=== PATIENT | female | born 1955 | race Caucasian/White ===

== ENCOUNTER 2020-01-25 20:25 | Inpatient (IN) ==
[2020-01-25] MEDS ORDERED: ZOFRAN IV ONE (21:17)
[2020-01-25] MEDS ORDERED: NS 1,000 ML IV ONE (21:17)
[2020-01-25] MEDS ORDERED: MORPHINE IV ONE (21:17)
[2020-01-25] MEDS ORDERED: BENTYL IM ONE (21:17)
--- NOTE | 2020-01-25 21:20 | PROVIDER DOCUMENTATION ---
HPI-Abdominal Pain/GI Problem - General Chief Complaint: Flank Pain Stated Complaint: FLANK PAIN/VOMITING Time Seen by Provider: 01/25/20 20:50 Source: patient Allergies/Adverse Reactions: Patient Allergies Allergy/AdvReac Type Severity Reaction Status Date / Time Sulfa (Sulfonamide Allergy Mild RASH Verified 01/25/20 21:11 Antibiotics) [Sulfa(Sulfonamide Antibiotics)] clarithromycin [From Biaxin] Allergy Unknown Verified 01/25/20 21:11 Home Medications: Home Medication List Medication Instructions Recorded Confirmed Last Taken Type Estradiol 1 mg PO DAILY 05/04/16 01/25/20 05/03/16 History Meloxicam [Mobic] 15 mg PO DAILY 05/04/16 01/25/20 05/03/16 History Metformin E.r. [Glucophage Xr] 2,000 mg PO DAILY 05/04/16 01/25/20 05/03/16 History Oxybutynin [Ditropan] 5 mg PO DAILY 05/04/16 01/25/20 05/03/16 History Losartan Potassium 25 mg PO DAILY 01/25/20 01/25/20 Unknown History Pantoprazole [Protonix] 40 mg PO DAILY 01/25/20 01/25/20 Unknown History - History of Present Illness-ABD Nature of Presenting Problems: Patient is a 64 yof who c/o diffuse abdominal pain described as "cramping" associated with n/v/d and lower back pain that began today. Also c/o urinary urgency and frequency for a few days. + chills. Denies any other complaints. Review of Systems - Adult - REVIEW OF SYSTEMS - ADULT Constitutional: reports: see HPI, chills Eyes: reports: no symptoms reported Ears, Nose, Mouth & Throat: reports: no symptoms reported Cardiovascular: reports: no symptoms reported Respiratory: reports: no symptoms reported Gastrointestinal: reports: see HPI Genitourinary: reports: see HPI Musculoskeletal: reports: no symptoms reported Integumentary: reports: no symptoms reported Neurological: reports: no symptoms reported Psychiatric: reports: no symptoms reported Endocrine: reports: no symptoms reported Hematologic/Lymphatic: reports: no symptoms reported Allergic/Immunologic: reports: no symptoms reported All Other Systems: Reviewed and Negative Past History - Adult - PAST MEDICAL HISTORY-ADULT Review of Records: reports: Nursing Assessment Review, Medications Reviewed, Social history reviewed & non-contributory. Major Childhood Illnesses: reports: denies history Cardiovascular: reports: HTN Respiratory: reports: denies history Gastrointestinal: reports: denies history Genitourinary: reports: denies history Musculoskeletal: reports: denies history Neurological: reports: denies history Psychiatric: reports: denies history Endocrine/Immune: reports: Diabetes Diabetes Type: Type 2 Diabetes controlled by:: PO Meds Other Conditions: reports: denies history - PRIOR SURGERIES/PROCEDURES Surgical/Procedure History: reports: reviewed, not pertinent - FAMILY HISTORY Family History: reviewed, not pertinent - SOCIAL HISTORY Smoking: non-smoker Physical Exam-General - PHYSICAL EXAM-ADULT Initial Vital Signs Reviewed: Yes - CONSTITUTIONAL General Appearance: alert, no apparent distress. negative: lethargic, slow to respond - EYES Eyes: PERRL/EOMI, pink conjunctivae - HEAD, EARS, NOSE, MOUTH & THROAT HENMT: normocephalic/atraumatic, moist mucous membranes - NECK Neck: full range of motion, supple, normal inspection - RESPIRATORY Respiratory: chest non-tender, lungs clear, normal breath sounds, no pleuratic chest pain, no respiratory distress, no accessory muscle use - CARDIOVASCULAR Cardiovascular: normal peripheral pulses, regular rate, rhythm, no gallop, no murmur - GASTROINTESTINAL (ABDOMEN) Abdominal Exam: normal bowel sounds, soft, tenderness (diffuse- moderate). negative: distended, guarding, rigid, rebound - MUSCULOSKELETAL Back Exam: normal inspection, no CVA tenderness Extremity: normal range of motion, non-tender, normal inspection - SKIN Integumentary: normal color, warm/dry. negative: cyanosis, diaphoresis, jaundice, mottled, pallor - NEUROLOGIC Neurologic: grossly normal, no motor/sensory deficits - PSYCHIATRIC Psych/Mental Status: normal mood/affect, normal thought content, normal thought process, oriented x 3 Progress - PLAN OF CARE/RESULTS Progress/Plan/Lab Results: Vital Signs - 8 hr 01/25/20 20:44 Temperature 97.9 F Pulse Rate 113 H Respiratory Rate 22 Blood Pressure 115/70 O2 Sat by Pulse Oximetry 96 Orders Category Date Time Status NEWS Score 2-4:Order NEWS Lactate Series NOW Care 01/25/20 20:48 Active Nursing- Obtain EKG ONCE Care 01/25/20 21:[address] ABD/PELVIS W/IV CONT ONLY [CT] Stat Exams 01/25/20 21:18 Ordered CBC WITH DIFF [HEME] Stat Lab 01/25/20 21:17 Ordered COMPREHENSIVE METABOLIC PANEL [CHEM] Stat Lab 01/25/20 21:17 Uncollected LACTATE, PLASMA [CHEM] Lab 01/25/20 21:00 Uncollected LACTATE, PLASMA [CHEM] Lab 01/26/20 00:00 Uncollected LACTATE, PLASMA [CHEM] Lab 01/26/20 03:00 Uncollected LIPASE [CHEM] Stat Lab 01/25/20 21:17 Uncollected UA NIMS W/REFLEX CULT [URINALYSIS] Stat Lab 01/25/20 21:17 Uncollected Dicyclomine [Bentyl] Med 01/25/20 21:17 Once 20 mg IM NOW ONE Morphine Med 01/25/20 21:17 Once 4 mg IV NOW ONE Ns 1000 ml IV Bolus X1 Med 01/25/20 21:17 Ordered 0.9% Sodium Chloride Inj [Ns] 1,000 ml IV 999 mls/hr Ondansetron [Zofran] Med 01/25/20 21:17 Once 4 mg IV NOW ONE EKG [EKG] Stat Ther 01/25/20 21:17 Stop Req EKG [EKG] Stat Ther 01/25/20 21:19 Ordered Result Diagrams: 01/25/20 21:26 01/25/20 21:26 - REASSESSMENT Reassessment #1 Time Reassessed: 23:21 Status: other (RN states core temp is 103. Tylenol ordered. On-call urologist Dr. Lulu bryant. Pt in agreement with plan to admit. Pain/nausea controlled at this time.) - EKG 1 Time of EKG reading by physician:: 22:15 EKG Read and Signed by:: Ramiro Dykes EKG Interpretation (*Must complete 3 of following elements*): Abnormal Rate: 141 Rhythm: sinus tachycardia QRS: normal ST Wave: normal - CT/MRI 1 CT Study: Abdomen, Pelvis (Impression: 1. Right UVJ 3mm calculus causes moderate right hydronephrosis and hydroureter 2. Subpleural left lower lobe pulmonary nodule measuring up to 2.6 cm. Additionally there are multiple small 2-3 mm nodules of the right lung base. Recommend correlation with prior imaging given history of lung cancer. Per [facility].) - CONSULTS/PCP/HOSPITALIST Notification #1 *Consult/PCP/Hospitalist*: Dr. Lawson Time Discussed: 23:25 Reason/Comments: kidney stone, sepsis Consult Disposition: other (No recommendations, states HPS can consult him in the morning.) #2 Consult: Dr. Jeffrey, admitting HPS at Time Discussed: 23:32 Reason/Comments: admission- septic shock, kidney stone Consult Disposition: Admit (Dr. Jeffrey accepted admit at [facility], states to admit to [facility] Departure - Departure Date of Disposition Decision: 01/25/20 Time of Disposition Decision: 23:31 DIAGNOSIS: Kidney stone on right side, Pulmonary nodule, Hiatal hernia, Liver cyst, Severe sepsis Disposition: ADMITTED INPATIENT 09 Certified Medical Emergency: Emergent Condition: Serious - Critical Care Note This patient required my direct & personal management of CC.: No Attestation - Physician/ TRAVON Attestation Patient care was provided by Advanced Practice Provider:: Yes Advanced Practice Provider:: Deanna Rueda Advanced Practice Provider documentation review:: The Mid-level provider documentation, treatment plan and medical decision making was reviewed by the physician who agrees with all treatment and medical decision making by the MLP. The physician spent face to face time with patient:: No Advanced Practice Provider documentation review:: Supervising physician onsite and consulted in the evaluation and care of this patient. The physician did not have a face to face encounter with the patient. Sepsis: Tissue Perfusion Assmt - Physical Exam Assessment Date: 01/25/20 Time Assessment Initialized: 23:35 Vital Signs: Last Vital Signs Temp 103 F H 01/25/20 23:23 Pulse 113 H 01/25/20 20:44 Resp 22 01/25/20 20:44 BP 115/70 01/25/20 20:44 Pulse Ox 96 01/25/20 20:44 Height 5 ft 3 in Weight 215 lb Lung Sounds: lungs clear Heart Sounds: Regular Capillary Refill Time: Less Than 2 Seconds Peripheral Pulse Evaluation: radial (R): 3+, radial (L): 3+ Skin Exam: pink, turgor good - Alternative Fluid Bolus Bolus Option: Alternative Fluid Resuscitation Bolus for morbidly obese patients with a BMI >30, Refer to [facility] [place] Body Weight Chart for Reference. Is patient's BMI >30?: Yes Patient's BMI: 38.1 Fluid Bolus dosed using the [employer] [place] Body Weight Chart: Yes Patient's [place] Body Weight: 52 (kg) - Impression Impression: Tissue Perfusion Adequate - Plan Plan: See Orders
[2020-01-25 21:39] LABS: EOS# 0.01 X1000 (0.0-0.7); EOS% 0.7 % (0.0-10.0); HEMATOCRIT 43.2 % (37.0-47.0); HEMOGLOBIN 13.8 g/dL (12.0-16.0); IMM GRAN# 0.02 X1000 (0.0-0.04); IMM GRAN% 1.4 % (0.0-0.5); LYMPH# 0.35 X1000 (1.2-3.4); LYMPH% 24.8 % (20.5-51.1); MCH 28.7 PG (27-31); MCHC 31.9 g/dL (33-37); MCV 89.8 FL (81-99); MONO# 0.01 X1000 (0.11-0.59); MONO% 0.7 % (1.7-9.3); MPV 9.7 FL (7.4-10.4); NEUT# 1.02 X1000 (1.4-6.5); NEUT% 72.4 % (42.2-75.2); PLT 350 X1000 (130-400); RBC 4.81 XMIL (4.2-5.4); RDW 13.7 % (11.5-14.5); WBC 1.41 X1000 (4.8-10.8)
[2020-01-25 21:55] LABS: AGAP 19; ALBUMIN 4.5 g/dL (3.5-5.0); ALKALINE PHOSPHATASE 86 U/L (32-104); BUN 18 mg/dL (8-22); CHLORIDE 100 mmol/L (98-107); COSMO 288; CREATININE 0.9 mg/dL (0.5-0.9); ESTIMATED GFR > 60; GLUCOSE 182 mg/dL (70-104); GOT 23 U/L (10-30); GPT 23 U/L (10-36); LIPASE 24 U/L (13-60); POTASSIUM 3.9 mmol/L (3.5-5.1); SODIUM 141 mmol/L (136-145); TCO2 22 mmol/L (25-35); TOTAL PROTEIN 8.6 g/dL (6.3-8.3)
[2020-01-25 22:10] LABS: LYMPHS 55 % (21-51); SEGS 45 % (42-75)
[2020-01-25 23:01] LABS: INR 0.85
[2020-01-25 23:02] LABS: PTT 21.8 Seconds (22.3-41.8)
[2020-01-25] MEDS ORDERED: NS 3,000 ML IV ONE (23:12)
[2020-01-25] MEDS: ZOSYN 3.375 GM in NS 50 ML IV SCH (23:15)
[2020-01-25] MEDS ORDERED: PITRESSIN 40 UNIT in NS 100 ML IV SCH (23:15)
[2020-01-25] MEDS ORDERED: LEVOPHED 8 MG in D5 1/2 NS 250 ML IV SCH (23:15)
[2020-01-25] MEDS ORDERED: EPINEPHRINE 4 MG in NS 250 ML IV SCH (23:15)
[2020-01-25] MEDS ORDERED: TYLENOL PO ONE (23:19)
[2020-01-25] MEDS ORDERED: ROCEPHIN 1 GM in NS 50 ML IV ONE (23:24)
[2020-01-25 23:35] LABS: URINE SOURCE CATH
[2020-01-25] MEDS ORDERED: NS 2,000 ML IV ONE (23:37)
[2020-01-25 23:38] LABS: BILIRUBIN URINE NEGATIVE (NEGATIVE); BLOOD URINE MODERATE (NEGATIVE); COLOR YELLOW; GLUCOSE URINE NEGATIVE (NEGATIVE); KETONE URINE NEGATIVE (NEGATIVE); LEUKOCYTES URINE LARGE (NEGATIVE); NITRITE URINE POSITIVE (NEGATIVE); PH URINE 5.5; PROTEIN URINE TRACE mg/dL (NEGATIVE); SP GRAVITY URINE 1.037; TURBIDITY URINE HAZY (CLEAR); UROBILINOGEN URINE NORMAL (NORMAL)
[2020-01-25 23:41] LABS: UR EPITHELIAL CELLS <10 /HPF (<10); URINE BACTERIA 4+ /HPF; URINE WBC TNTC /HPF (<10)
[2020-01-25] MEDS ORDERED: VANCOMYCIN IV PER PHARMACY MISC SCH (23:45)
[2020-01-25 23:54] LABS: URINE CASTS NONE SEEN; URINE CRYSTALS NONE SEEN; URINE SMALL ROUND CELLS NONE SEEN; URINE YEAST NONE SEEN
[2020-01-26] MEDS ORDERED: NS 1,000 ML IV SCH (02:30)
[2020-01-26] MEDS ORDERED: VANCOMYCIN 2,000 MG in NS 500 ML IV ONE (02:30)
[2020-01-26] MEDS ORDERED: NORCO-5 PO PRN (02:46)
--- NOTE | 2020-01-26 03:30 | HISTORY AND PHYSICAL ---
PRIMARY CARE PHYSICIAN: Dr. Serna. CHIEF COMPLAINT: Right flank pain x1 week. HISTORY OF PRESENTING ILLNESS: A 64-year-old female with a previous history of lung cancer status post radiation treatment, diabetes mellitus type 2, hyperlipidemia, who had presented to emergency department with 1-week history of having right flank pain. The patient states that she was not feeling well and the pain was worsening and subsequently she had come to the emergency department. She was evaluated initially at [facility] where she was found to have a right UVJ 3 mm stone with hydronephrosis. She was also found to have a UTI. She had an elevated lactate level and it was suspected possibly she was septic and due to these findings she was transferred to [facility] for further evaluation and management. At the time of my examination, patient denied any headache, chest pain, shortness of breath, hemoptysis or any weight changes, but complained of right flank pain, low-grade temperature, nausea and not feeling well. PAST MEDICAL HISTORY: Includes lung cancer, diabetes mellitus type 2, hyperlipidemia. PAST SURGICAL HISTORY: Left upper lobe lobectomy, bilateral knee replacement, hysterectomy. ALLERGIES: Sulfa and clarithromycin, and she is intolerant to statins. CURRENT MEDICATIONS: Include losartan 25 mg p.o. daily, metformin 1000 mg p.o. daily, oxybutynin 5 mg p.o. daily, pantoprazole 40 mg p.o. daily. SOCIAL HISTORY: She denies any history of smoking, alcohol or illicit drug use. FAMILY HISTORY: No history of coronary artery disease. REVIEW OF SYSTEMS: Fourteen point review of systems is as listed in HPI. Other systems negative. PHYSICAL EXAMINATION: GENERAL: Cooperative, friendly female. She is resting more comfortably now. VITAL SIGNS: Temperature 98.5 degrees, pulse 120, respiration 19, blood pressure 115/75. HEENT: Atraumatic, normocephalic. Extraocular movements intact. PERRLA. NECK: No masses. CHEST: Clear to auscultation. CARDIOVASCULAR: Regular rate and rhythm. ABDOMEN: Soft, right flank tenderness. EXTREMITIES: No edema. NEUROLOGIC: She is awake, alert, oriented x3. GENITOURINARY: No bladder distention. SKIN: Warm. LABORATORIES AND STUDIES: WBC 1.41, hemoglobin 13.8, hematocrit 43.2, platelets 350,000. Sodium 141, potassium 3.9, chloride 100, CO2 is 22, BUN is 18, creatinine 0.9, glucose 182. Plasma lactate is 6.5. UA shows nitrite positive, and large leukocytes and +4 bacteria. ASSESSMENT: This is a 64-year-old female with a history of lung cancer, diabetes mellitus type 2 and hyperlipidemia, who initially had presented to [facility] with complaint of right flank pain. She had imaging done which did show a right UVJ 3 mm stone with right hydronephrosis. It was also thought that she was septic. Due to lack of subspecialist care there, she was transferred to [facility] for further treatment. 1. Right ureterovesical junction 3 mm calculi with right hydronephrosis. 2. Urinary tract infection. 3. Probable sepsis. 4. Diabetes mellitus type 2. PLAN: 1. We will admit patient to [facility]. 2. We will check blood cultures, urine cultures and start patient on IV antibiotics. 3. We will consult Urology. 4. We will continue with IV fluids and monitor blood pressure closely. 5. We will monitor blood glucose and put patient on sliding scale insulin regimen. 6. We will put patient on DVT prophylaxis with SCD. 7. We will continue to follow and reassess, make further recommendation based on patient's clinical course. cc: Evans Jeffrey MD
[2020-01-26] MEDS: ZOSYN 3.375 GM in NS 50 ML IV SCH ×4 (05:22→22:33)
[2020-01-26] MEDS: HUMULIN R SUBQ SCH ×4 (06:39→21:00)
--- NOTE | 2020-01-26 07:32 | Diag Imaging Result Doc PS360 ---
EXAM: CT ABD/PELVIS W/IV CONT ONLY 01/25/2020 HISTORY: diffuse abd pain, tenderness TECHNIQUE: This exam was performed using automated exposure control, adjustment of mA or kV according to patient size, and/or use of iterative reconstruction technique. COMMENT: There are no previous abdominal studies. Comparison is made with the previous thoracic study of 10/17/2012 where possible. There is a pleural-based opacity in the left lower lobe seen on image #1 which was not present at the time the previous study although there was a small nodule in this area previously. This is incompletely imaged, but is at least 3.3 cm in diameter. There is some ill-defined opacity adjacent to the medial pleura in the left lower lobe which was not apparently present at the time the previous study. There is a tiny pleural-based nodule on image 22 in the right lower lobe which was present and has not changed since the previous study. Additional small nodules in the right middle lobe and lower lobe are present which were apparently present at the time the previous study. There is a cyst in the dome of the right hepatic lobe which was present previously although it is slightly larger measuring over 19 mm in AP dimension on today's study versus 13 mm previously. The liver is slightly hypodense. The aorta is not distended. The mesenteric and renal arteries are patent. The spleen and adrenal glands are not enlarged. There is a small hiatal hernia. There is right-sided hydronephrosis. There are no apparent stones in the kidneys. There is right hydroureter. There is a tiny calculus at the UVJ on the right. This is less than 2 mm in diameter. The urinary bladder is unremarkable. There is no evidence of bowel obstruction. The pancreas is unremarkable in appearance. There is no evidence of significant adenopathy. Pelvis: The appendix is normal in appearance. There is no evidence of free fluid. There has been hysterectomy. There are some scattered bone islands in the pelvis. There are degenerative facet changes at L5-S1 bilaterally. IMPRESSION: Right hydronephrosis and distal ureterolithiasis. Left lower lobe opacity of uncertain significance. Ill-defined opacity medial right lower lobe. Multiple right basilar nodules which are apparently stable since 10/17/2012. Electronically signed by Lyle Salomon 01/26/2020 7:30 AM
[2020-01-26] MEDS: PROTONIX PO SCH (08:29)
[2020-01-26] MEDS: NORCO-5 PO PRN ×2 (08:58→22:32)
[2020-01-26 10:01] LABS: ALBUMIN 2.9 g/dL (3.5-5.0); CALCIUM 7.9 mg/dL (8.8-10.2); CREATININE 1.2 mg/dL (0.5-0.9); PHOSPHORUS 2.6 mg/dL (2.7-4.5); POTASSIUM 3.7 mmol/L (3.5-5.1)
--- NOTE | 2020-01-26 10:19 | EKG Report ---
Test Performed on : 01/25/2020 10:14:28 PM Test Reason : vomiting Blood Pressure : / mmHG Vent. Rate : 141 BPM Atrial Rate : 141 BPM P-R Int : 116 ms QRS Dur : 076 ms QT Int : 280 ms P-R-T Axes : 061 024 007 degrees QTc Int : 428 ms Sinus tachycardia. Nonspecific ST abnormality Abnormal ECG When compared with ECG of 04-MAY-2016 12:11, Vent. rate has increased BY [address] now depressed in Anterior leads Unconfirmed Result
[2020-01-26] MEDS ORDERED: DILAUDID IV PRN (10:34)
[2020-01-26 10:38] LABS: BASO# 0.02 X1000 (0.0-0.2); BASO% 0.1 % (0.0-0.8); EOS# 0.01 X1000 (0.0-0.7); EOS% 0.1 % (0.0-10.0); HEMATOCRIT 33.7 % (37.0-47.0); HEMOGLOBIN 10.7 g/dL (12.0-16.0); IMM GRAN# 0.09 X1000 (0.0-0.04); IMM GRAN% 0.5 % (0.0-0.5); MCH 28.6 PG (27-31); MCHC 31.8 g/dL (33-37); MCV 90.1 FL (81-99); MONO# 0.63 X1000 (0.11-0.59); MONO% 3.3 % (1.7-9.3); PLT 197 X1000 (130-400); RBC 3.74 XMIL (4.2-5.4); WBC 19.15 X1000 (4.8-10.8)
[2020-01-26 10:58] LABS: BANDS 5 % (0-1); LYMPHS 4 % (21-51); MONO 1 % (1-9); SEGS 90 % (42-75)
[2020-01-26] MEDS ORDERED: NS 1,000 ML IV ONE (10:58)
[2020-01-26] MEDS ORDERED: FENTANYL ONE (11:05)
[2020-01-26] MEDS ORDERED: DIPRIVAN 1% ONE (11:05)
[2020-01-26] MEDS ORDERED: XYLOCAINE-MPF 2% ONE (11:09)
[2020-01-26] MEDS ORDERED: ROBINUL ONE (11:09)
[2020-01-26] MEDS: NS 1,000 ML IV SCH ×2 (13:01→18:51)
--- NOTE | 2020-01-26 13:02 | OPERATIVE NOTE ---
PROCEDURE DATE: 01/26/2020 PREOPERATIVE DIAGNOSIS: Right distal ureteral stone with moderate hydroureteronephrosis and sepsis syndrome. POSTOPERATIVE DIAGNOSIS: Right distal ureteral stone with moderate hydroureteronephrosis and sepsis syndrome. PROCEDURES PERFORMED: 1. Cystoscopic exam. 2. Placement of right double-J stent. 3. Replace Cope catheter. ANESTHESIA: General via laryngeal mask. FINDINGS: Cystoscopic exam: Urethra - greater than 21-Libyan without stricture. Bladder - normal ureteral orifices bilaterally. No papillary lesions. No trabeculations. No diverticula. After a wire was placed into the right ureter, a large amount of cloudy efflux occurred. exam: Normal external female. Atrophic mucosa. No adnexal masses or tenderness. Palpably normal bladder. INDICATION FOR PROCEDURE: This is a 64-year-old female with septic syndrome, with an obstructing right distal ureteral stone. DESCRIPTION OF PROCEDURE: After informed consent was obtained from the patient and her receiving IV antibiotics, she was taken to the main OR cystoscopy room, placed in the supine position, and general anesthesia via laryngeal mask was achieved. She was then placed in the low lithotomy position, and prepped and draped in the usual sterile fashion for cystoscopic exam. A 21-Libyan sheath cystoscope was passed through the patient's urethra and into the bladder with findings noted above. A 0.035 ZIPwire was passed through the cystoscope, and engaged the right ureteral orifice, and multiple attempts were made to push the wire past the obstruction, which was finally accomplished when the scope was turned 90 degrees. The wire was then advanced up into the kidney. A 6-Libyan, 22 cm double-J stent was passed over the ZIPwire and up into the ureter, and advanced to the kidney. The stent removal string was removed. The renal position was verified by fluoroscopic exam, bladder, and directly visualized. The bladder was left distended, and a 16- Libyan Cope catheter was passed through the patient's urethra and into the bladder, and 10 mL of sterile water were placed in the Cope's balloon. Cope was placed to gravity drain. The efflux was clear. exam was performed. She tolerated the procedure well. Estimated blood loss was 0. She was taken to the recovery room in good condition. cc: Peter Lawson MD
--- NOTE | 2020-01-26 13:16 | CONSULTATION ---
DATE OF CONSULTATION: 01/26/2020 ATTENDING AND REFERRING PHYSICIAN: Hospitalist. CHIEF COMPLAINT: Abdominal pains. HISTORY OF PRESENT ILLNESS: This 64-year-old female was admitted with abdominal pains and sepsis syndrome, probably from a urinary source. The patient states she has passed a kidney stone many years ago. She states this pain does not feel like that pain that she did have. She states she may have had a fever. She was noted to have [id number]-count white cells in her urine. A CT stone search revealed a 2 to 3 mm stone at the right ureterovesical junction with hydronephrosis. PAST MEDICAL HISTORY: Lung cancer, diabetes, elevated cholesterol. CURRENT MEDICATIONS: Documented on the chart and include piperacillin/tazobactam. PAST SURGICAL HISTORY: 1. Left upper lobectomy. 2. Bilateral knee replacements. 3. Hysterectomy. SOCIAL HISTORY: She denies tobacco or alcohol use. ALLERGIES: She is allergic to erythromycin and sulfa. REVIEW OF SYSTEMS: She denies any problems with chest pains, strokes, seizures or recent bowel problems. She states she is somewhat short of breath. PHYSICAL EXAMINATION: General: A normally developed, obese, age apparent, white female, oriented in all ways and cooperative. HEENT: Normal for age. Lungs: Clear. Cardiovascular: Tachycardic. Abdomen: Obese soft, nontender. No hepatosplenomegaly or masses. Normal bowel sounds. Genitourinary exam: Deferred until surgery. Extremities: No clubbing, cyanosis, or edema. Neuro: No focal deficits. LABORATORY EVALUATION: An initial WBC of 1.4. A followup CBC has a white count of 19.15, hemoglobin 10.7, hematocrit 33.7, and platelets are 197,000. Serum electrolytes have a sodium 142, potassium 3.7, chloride 113, bicarbonate 15. BUN 23, creatinine 1.2. A urinalysis has positive nitrite on dipstick and too numerous to count white cells. CT stone search is as noted in the HPI. IMPRESSION: 1. Sepsis syndrome. Probably from a urinary tract infection. 2. Right distal ureteral stone with moderate obstruction. 3. Diabetes. Recommend cystoscopic exam, place right double-J stent. Continue intravenous antibiotics until culture results are known. Thank you for this consultation. cc: Peter Lawson MD
--- NOTE | 2020-01-26 13:16 | Diag Imaging Result Doc PS360 ---
EXAM: FLUROSCOPY CYSTO 01/26/2020 HISTORY: CYSTOSCOPY, R URETERAL STENT TECHNIQUE: 15 images, COMMENT: A right ureteral stent was placed by Dr. Lawson. No contrast was administered. IMPRESSION: Right ureteral stent placement. Electronically signed by Lyle Salomon 01/26/2020 1:14 PM
[2020-01-26] MEDS ORDERED: ZOFRAN IV PRN (15:50)
[2020-01-26] MEDS ORDERED: NS 500 ML IV ONE (15:54)
[2020-01-26] MEDS ORDERED: NS 500 ML IV SCH (16:00)
[2020-01-27] MEDS: NS 1,000 ML IV SCH ×3 (01:53→12:52)
[2020-01-27] MEDS ORDERED: VANCOMYCIN 1,800 MG in NS 250 ML IV SCH (02:30)
[2020-01-27] MEDS: ZOSYN 3.375 GM in NS 50 ML IV SCH (04:43)
[2020-01-27 06:00] LABS: HEMOGLOBIN A1C 6.3 % (4.8-6.0)
[2020-01-27 06:01] LABS: BASO# 0.03 X1000 (0.0-0.2); BASO% 0.1 % (0.0-0.8); HEMATOCRIT 30.4 % (37.0-47.0); HEMOGLOBIN 9.9 g/dL (12.0-16.0); IMM GRAN# 0.82 X1000 (0.0-0.04); IMM GRAN% 3.2 % (0.0-0.5); LYMPH# 1.11 X1000 (1.2-3.4); LYMPH% 4.4 % (20.5-51.1); MCH 28.7 PG (27-31); MCHC 32.6 g/dL (33-37); MCV 88.1 FL (81-99); MONO# 0.75 X1000 (0.11-0.59); MPV 10.4 FL (7.4-10.4); NEUT# 22.67 X1000 (1.4-6.5); NEUT% 89.3 % (42.2-75.2); PLT 194 X1000 (130-400); RBC 3.45 XMIL (4.2-5.4); RDW 14.1 % (11.5-14.5); WBC 25.38 X1000 (4.8-10.8)
[2020-01-27 06:27] LABS: ALBUMIN 2.9 g/dL (3.5-5.0); CALCIUM 7.2 mg/dL (8.8-10.2); PHOSPHORUS 4.1 mg/dL (2.7-4.5); POTASSIUM 3.7 mmol/L (3.5-5.1)
[2020-01-27] MEDS ORDERED: SODIUM PHOSPHATE 35 MMOL in NS 250 ML IV ONE (06:27)
[2020-01-27] MEDS ORDERED: LASIX IV ONE (06:45)
[2020-01-27] MEDS ORDERED: DUONEB (A & A) INH PRN (06:45)
[2020-01-27] MEDS: HUMULIN R SUBQ SCH ×4 (07:29→20:36)
[2020-01-27] MEDS: PROTONIX PO SCH ×2 (07:29→08:32)
--- NOTE | 2020-01-27 07:38 | PROGRESS NOTE ---
DATE: 01/27/2020 SUBJECTIVE: Patient reports feeling fine. Reports some chills last night. No nausea or vomiting. Mild back pain noted. OBJECTIVE: Vital Signs: Temperature 98.1 degrees, heart rate 103, respiratory rate 17, blood pressure 95/44, O2 saturation 100% on room air. General Examination: This is a 64-year-old, female lying in bed, in no acute distress. Cardiovascular Examination: S1 and S2 heard. No murmurs, gallops, or rubs. Regular rate and rhythm. Respiratory Examination: Clear bilaterally to auscultation. No work of breathing. Not using accessory muscles. Abdomen: Soft, nontender to palpation. There is right flank tenderness noted. No organomegaly. Extremities: No clubbing, cyanosis, or edema. Peripheral pulses present in both legs. Neurological Examination: The patient is alert and oriented x3. Moves 4 extremities. Laboratory Data: White cell count 25.3, hemoglobin 9.9, hematocrit 30.4, platelets 194,000, with BMP that reveals creatinine 1.0, phosphorus 4.1. ASSESSMENT AND PLAN: 1. Right ureteropelvic junction 3 mm kidney stone with right hydronephrosis, status post right double-J stent. The patient reports feeling fine. Pain is under control with medication that she is receiving here in the hospital. At this point, we will continue with intravenous fluids. 2. Gram-negative bacteremia secondary to urinary tract infection. That is what we were reported. Patient is on Zosyn but because of the elevation of white cell count today from 19,000 to 25,000, I prefer to go ahead and change antibiotics to meropenem for a possible extended- spectrum B-lactamase infection. We will continue to monitor CBC daily. 3. Diabetes mellitus type 2. We will continue with sliding scale insulin, and Accu-Chek before meals and also at bedtime. 4. Chronic obstructive pulmonary disease. Patient uses inhalers at home. We are going to restart those today. 5. Disposition. We will continue to monitor this patient here in the intensive care unit. cc: Jesús Bowers MD
[2020-01-27] MEDS: DUONEB (A & A) INH SCH ×5 (08:27→23:07)
[2020-01-27] MEDS: MERREM 1 GM in NS 50 ML IV SCH ×3 (08:32→22:50)
[2020-01-27] MEDS ORDERED: MORPHINE IV PRN (09:28)
[2020-01-27] MEDS: OFIRMEV 1000 MG/ISOTONIC SOLN 1,000 MG/100 ML BOTTLE IV PRN ×2 (09:56→21:00)
[2020-01-28] MEDS: NS 1,000 ML IV SCH ×3 (03:13→17:09)
[2020-01-28] MEDS: DUONEB (A & A) INH SCH ×6 (03:16→23:40)
[2020-01-28] MEDS: MERREM 1 GM in NS 50 ML IV SCH (06:09)
[2020-01-28] MEDS: HUMULIN R SUBQ SCH ×4 (06:19→20:17)
[2020-01-28 06:45] LABS: BASO# 0.03 X1000 (0.0-0.2); BASO% 0.1 % (0.0-0.8); EOS# 0.04 X1000 (0.0-0.7); EOS% 0.2 % (0.0-10.0); HEMATOCRIT 29.9 % (37.0-47.0); HEMOGLOBIN 9.9 g/dL (12.0-16.0); LYMPH# 1.41 X1000 (1.2-3.4); LYMPH% 5.5 % (20.5-51.1); MCH 29.2 PG (27-31); MCHC 33.1 g/dL (33-37); MCV 88.2 FL (81-99); MONO# 0.73 X1000 (0.11-0.59); MONO% 2.9 % (1.7-9.3); MPV 10.7 FL (7.4-10.4); NEUT% 91.3 % (42.2-75.2); PLT 161 X1000 (130-400); RBC 3.39 XMIL (4.2-5.4); RDW 14.1 % (11.5-14.5); WBC 25.51 X1000 (4.8-10.8)
[2020-01-28 06:56] LABS: AGAP 12; ALBUMIN 2.8 g/dL (3.5-5.0); BUN 12 mg/dL (8-22); CHLORIDE 110 mmol/L (98-107); COSMO 284; CREATININE 0.8 mg/dL (0.5-0.9); ESTIMATED GFR > 60; GLUCOSE 123 mg/dL (70-104); POTASSIUM 3.1 mmol/L (3.5-5.1); SODIUM 142 mmol/L (136-145); TCO2 20 mmol/L (25-35)
[2020-01-28 07:19] LABS: BANDS 12 % (0-1); LYMPHS 4 % (21-51); MONO 4 % (1-9); SEGS 80 % (42-75)
[2020-01-28] MEDS ORDERED: KLOR-CON PO ONE ×2 (07:50→08:45)
[2020-01-28] MEDS: ROCEPHIN 2 GM in NS 50 ML IV SCH (08:48)
[2020-01-28] MEDS: PROTONIX PO SCH (08:49)
--- NOTE | 2020-01-28 09:17 | PROGRESS NOTE ---
DATE: 01/28/2020 SUBJECTIVE: The patient reports feeling fine, denies any fever or chills, just some cough after she is using breathing treatment. OBJECTIVE: Vital Signs: Temperature 98 degrees, heart rate 96, respiratory rate 20, blood pressure 151/78, O2 saturation 95% on room air. General examination: This is a 64-year-old female lying in bed, in no acute distress. Cardiovascular Exam: S1, S2 heard. No murmurs, gallops, or rubs. Regular rate and rhythm. Respiratory Exam: Clear bilaterally to auscultation. No work of breathing or using accessory muscles. Abdomen: Soft, nontender to palpation. Mild right flank tenderness noted. No organomegaly. Extremities: No clubbing, cyanosis, or edema. Peripheral pulses present in both legs. Neurological Exam: Patient is alert and oriented x3. Moves 4 extremities. LABORATORY DATA: White cell count 25.51, hemoglobin 9.9, hematocrit 29.9, platelets 161,000. Potassium 3.1, calcium 8.0, phosphorus 3.0. ASSESSMENT AND PLAN: 1. Right ureteropelvic junction 3 mm stone with right hydronephrosis status post right double J stent placement. Clinically, this patient is doing fine. We will continue with IV fluids and pain medications. 2. Escherichia coli bacteremia, that is what the blood culture shows, so at this point, I will deescalate antibiotics from meropenem to ceftriaxone 2 g IV q.24 hours, that will provide for 14 days. We are going to repeat blood cultures and after 48 hours that is negative then will go ahead and place a PICC line and then discharge the patient home. 3. Elevated white cell count. Even though this patient is being treated with strong antibiotics for this urine infection, white cell count continues to be elevated. There is a suspicion imaging in the CT of the abdomen suggesting some abnormality to the left lung, so at this point, I am going to order a CT of the chest and will go from there. 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 Will continue to monitor. 4. Diabetes mellitus type 2. We will continue with sliding scale insulin and Accu-Chek before meals and also at bedtime. 5. Chronic obstructive pulmonary disease not on any exacerbation. Will continue with inhalers at home. Will continue with breathing treatments every 4 hours scheduled. 6. Disposition. We will continue to monitor this patient closely. I think she is pretty much stable to transfer her out of the PVC unit today to a regular floor. cc: Jesús Bowers MD
[2020-01-28] MEDS: COZAAR PO SCH ×2 (15:40→20:45)
[2020-01-29] MEDS: NS 1,000 ML IV SCH ×3 (04:43→19:33)
[2020-01-29 05:50] LABS: BASO# 0.03 X1000 (0.0-0.2); BASO% 0.2 % (0.0-0.8); EOS# 0.15 X1000 (0.0-0.7); HEMATOCRIT 29.2 % (37.0-47.0); HEMOGLOBIN 9.5 g/dL (12.0-16.0); IMM GRAN# 0.05 X1000 (0.0-0.04); IMM GRAN% 0.3 % (0.0-0.5); LYMPH# 1.63 X1000 (1.2-3.4); LYMPH% 10.8 % (20.5-51.1); MCH 28.8 PG (27-31); MCHC 32.5 g/dL (33-37); MCV 88.5 FL (81-99); MONO# 0.69 X1000 (0.11-0.59); MONO% 4.6 % (1.7-9.3); MPV 10.8 FL (7.4-10.4); NEUT# 12.57 X1000 (1.4-6.5); NEUT% 83.1 % (42.2-75.2); PLT 168 X1000 (130-400); RDW 14.3 % (11.5-14.5); WBC 15.12 X1000 (4.8-10.8)
[2020-01-29] MEDS: DUONEB (A & A) INH SCH ×6 (05:57→23:30)
[2020-01-29 06:22] LABS: AGAP 11; ALBUMIN 2.5 g/dL (3.5-5.0); BUN 6 mg/dL (8-22); CALCIUM 8.2 mg/dL (8.8-10.2); CHLORIDE 113 mmol/L (98-107); COSMO 282; CREATININE 0.6 mg/dL (0.5-0.9); ESTIMATED GFR > 60; GLUCOSE 127 mg/dL (70-104); PHOSPHORUS 2.4 mg/dL (2.7-4.5); POTASSIUM 3.9 mmol/L (3.5-5.1); SODIUM 142 mmol/L (136-145); TCO2 18 mmol/L (25-35)
[2020-01-29] MEDS: HUMULIN R SUBQ SCH ×4 (08:29→22:22)
[2020-01-29] MEDS: COZAAR PO SCH ×2 (08:48→21:45)
[2020-01-29] MEDS: PROTONIX PO SCH (08:48)
[2020-01-29] MEDS: ROCEPHIN 2 GM in NS 50 ML IV SCH (08:48)
--- NOTE | 2020-01-29 09:27 | PROGRESS NOTE ---
DATE: 01/29/2020 SUBJECTIVE: The patient reports feeling better. Denies any fever or chills. Mild cough. OBJECTIVE: Vitals: Temperature 98.3 degrees, heart rate 81, respiratory rate 17, blood pressure 181/86, O2 saturation 97% on room air. General Examination: This is a 64-year-old female, lying in bed in no acute distress. Cardiovascular exam: S1, S2 heard. No murmurs, gallops, or rubs. Regular rate and rhythm. Respiratory exam: Clear bilaterally to auscultation. No work of breathing or using accessory muscles. Abdomen: Soft, nontender to palpation. Bowel sounds present. No organomegaly. Extremities: No clubbing, cyanosis, or edema. Peripheral pulses present in both legs. Neurological exam: Patient is alert and oriented x3. Moves 4 extremities. LABORATORY DATA: White cell count 15.12, hemoglobin 9.5, hematocrit 29.2, platelets 1680. Renal function is completely normal today with potassium 3.9 and glucose 127. ASSESSMENT AND PLAN: 1. Right ureteropelvic junction with 3 mm stone and right hydronephrosis, status post right double J stent placement. Clinically, this patient is doing fine. We will continue with intravenous fluids and pain medication. 2. Escherichia coli bacteremia. We have ordered yesterday a blood culture, which is negative. I am waiting for tomorrow to see if that blood culture is still negative. What we are going to do is to set up home intravenous antibiotics with ceftriaxone 2 grams intravenous every 24 hours. That is going to be given for 2 weeks, considering the first day of the treatment the first day of the blood culture being negative, and we will place a PICC line tomorrow if the blood culture is negative. The patient is getting better. White cell count is finally improving. We will continue to monitor. 3. Mild cough. I am going to check a CT of the chest to see if there are any signs of infection in the lungs, so we have ordered a CT of the chest. We will see what it shows. 4. Diabetes mellitus type 2. We will continue with sliding scale insulin and Accu-Chek before meals and also at bedtime. 5. Chronic obstructive pulmonary disease not in any exacerbation. We have started DuoNeb every 4 hours as scheduled. 6. Disposition: We will transfer this patient out of the progressive care unit to a regular floor. We will continue to monitor. cc: Jesús Bowers MD
--- NOTE | 2020-01-29 09:29 | Diag Imaging Result Doc PS360 ---
EXAM: CT THORAX W/CONTRAST 01/29/2020 HISTORY: pneumonia TECHNIQUE: This exam was performed using automated exposure control, adjustment of mA or kV according to patient size, and/or use of iterative reconstruction technique. COMMENT: The current study is compared with 10/17/2012, the abdominal study of 01/25/2020, and 11/28/2019 (the imaging center.) There is a prevascular node on image 32 which has increased in size since the previous examination of 10/17/2012 from less than 10 mm to almost 12 mm currently, although this measured over 13 mm on the previous study of 11/28/2019. Otherwise there is no evidence of significant adenopathy. There are small bilateral pleural effusions. This was not the case previously. There is a cyst in the right hepatic lobe which was also present previously. The adrenal glands are not enlarged. There are multiple pulmonary nodules in the right upper lobe which apparently were also present on the previous study. There is a pleural-based nodule in the upper superior segment on the right which is much larger than it was on the previous study of 10/17/2012, with some retraction and thickening of the adjacent major fissure and measuring at least 10 mm in diameter. This is not significantly changed since 11/28/2019. There is an ill-defined opacity on image 51 in the right lower lobe which was much smaller on the previous study. There are multiple small nodules present in the middle lobe and right lower lobe which were apparently present previously. There is a pleural-based multiple lobulated mass in the left lower lobe adjacent to the pleura measuring 3.3 cm in diameter which was not present at the time the previous study of 2011, however compared to the 2019 the thoracic study this has decreased in anterior posterior dimension from over 5.6 cm to slightly over 3.6 cm today. On the previous abdominal study of 01/25/2020 this measured slightly over 3.2 cm, but was not completely imaged at that time. There has been left upper lobectomy which was also the case previously. The regional skeleton is stable in appearance. IMPRESSION: Left lower lobe pneumonia slightly improved since 11/28/2019. Otherwise stable CT of the chest. Electronically signed by Lyle Salomon 01/29/2020 9:26 AM
[2020-01-30] MEDS: DUONEB (A & A) INH SCH ×3 (03:52→11:18)
[2020-01-30 06:43] LABS: BASO# 0.05 X1000 (0.0-0.2); BASO% 0.5 % (0.0-0.8); EOS# 0.34 X1000 (0.0-0.7); EOS% 3.3 % (0.0-10.0); HEMATOCRIT 32.6 % (37.0-47.0); HEMOGLOBIN 10.5 g/dL (12.0-16.0); IMM GRAN# 0.21 X1000 (0.0-0.04); LYMPH# 2.45 X1000 (1.2-3.4); LYMPH% 23.8 % (20.5-51.1); MCH 28.2 PG (27-31); MCHC 32.2 g/dL (33-37); MCV 87.6 FL (81-99); MONO# 0.81 X1000 (0.11-0.59); MONO% 7.9 % (1.7-9.3); MPV 10.3 FL (7.4-10.4); NEUT# 6.42 X1000 (1.4-6.5); NEUT% 62.5 % (42.2-75.2); PLT 207 X1000 (130-400); RBC 3.72 XMIL (4.2-5.4); RDW 14.3 % (11.5-14.5); WBC 10.28 X1000 (4.8-10.8)
[2020-01-30] MEDS: HUMULIN R SUBQ SCH ×2 (07:06→12:16)
[2020-01-30 07:13] LABS: AGAP 11; ALBUMIN 3.2 g/dL (3.5-5.0); BUN 6 mg/dL (8-22); CHLORIDE 107 mmol/L (98-107); COSMO 279; CREATININE 0.6 mg/dL (0.5-0.9); ESTIMATED GFR > 60; GLUCOSE 130 mg/dL (70-104); PHOSPHORUS 3.7 mg/dL (2.7-4.5); POTASSIUM 3.9 mmol/L (3.5-5.1); SODIUM 140 mmol/L (136-145); TCO2 22 mmol/L (25-35)
[2020-01-30] MEDS: COZAAR PO SCH (09:27)
[2020-01-30] MEDS: PROTONIX PO SCH (09:27)
[2020-01-30] MEDS: NS 1,000 ML IV SCH (10:46)
[2020-01-30] MEDS: ROCEPHIN 2 GM in NS 50 ML IV SCH (10:48)
[2020-01-30 10:50] LABS: INR 0.88
[2020-01-30 11:35] VITALS: BP 184/90
--- NOTE | 2020-01-30 12:04 | DISCHARGE SUMMARY ---
ADMISSION DATE: 01/26/2020 DISCHARGE DATE: 01/30/2020 PRIMARY CARE PROVIDER: Radha Serna MD. PERTINENT PROCEDURES: 1. Abdomen and pelvis CT: Right hydronephrosis, distal ureterolysis, left lower lobe opacity of uncertain significance, ill-defined opacity medial right lower lobe, multiple right basilar nodules which were apparently stable since 10/17/2012. 2. Cystoscopic exam and placement of right double-J stent, replaced Cope catheter performed by Dr. Lawson. 3. Chest CT: Left lower lobe pneumonia, slightly improved since 11/28/2019, otherwise stable CT. DISCHARGE DIAGNOSES: 1. Right ureteropelvic with 3 mm stone, right hydronephrosis with right double-J stent placement. Clinically, the patient has improved. 2. Escherichia coli bacteremia. Blood cultures ordered yesterday were negative. The patient was setup with home IV antibiotics with ceftriaxone 2 g IV every 24 hours for 2 weeks. She will have a PICC line placed and then will be discharged home with home health and IV antibiotics. 3. Mild cough. The patient was noted to have a pneumonia. Will continue with IV antibiotics. 4. Diabetes mellitus type 2. Continue her home regimen. 5. Chronic obstructive pulmonary disease without exacerbation. Continue home regimen. HOSPITAL COURSE: Briefly, Ms. Mc is a 64-year-old female with a previous history of lung cancer status post radiation treatment, diabetes mellitus type 2, hyperlipidemia, who presented to the ED with a 1 week history of right flank pain. She was evaluated at [facility], where she was found to have a right UVJ 3 mm stone with hydronephrosis, as well as UTI, elevated lactate level, and a suspicion of sepsis, was transferred to [facility] with Urology followup. She underwent a cystoscopy exam with placement of right double-J stent with Dr. Lawson. She was treated for her sepsis and pneumonia as well as Escherichia coli bacteremia and will be discharged home with 2 weeks of IV antibiotics with home health after her PICC line. VITAL SIGNS: At time of discharge, temperature is 98.5 degrees, heart rate 94, respiratory rate 16, O2 is 98% on room air. DISCHARGE DIET: Diabetic. DISCHARGE MEDICATIONS: 1. Ditropan 5 mg p.o. daily. 2. Glucophage XR 1000 mg p.o. daily. 3. Protonix 40 mg p.o. daily. 4. Cozaar 150 mg p.o. b.i.d. 5. Hollsopple 5 one each p.o. q.4 hours p.r.n. 6. Albuterol sulfate inhaler 2 puffs inhaled q.4 hours p.r.n. FOLLOWUP: Ms. Mc is being discharged home with home health, IV antibiotics for 2 weeks after she received her PICC line. [employer]. She is to follow up with Dr. Lawson in 2 weeks as well as her primary care provider, Dr. Serna. She is to take all medications as prescribed. She can return to the ED or call 911 for any worsening of symptoms. Dictated by JESSICA Scott for Jesús Bowers MD Addendum: Patient seen and examined by myself. Agree with JESSICA note. It reflects my assessment and plan. Patient is being discharged in stable condition to home with home antibiotics. Will be seen by PCP in a week. cc: MD Peter Hilton MD Cesar Garcia-Rodriguez, MD MTDD
== END 2020-01-30 14:35 | disposition home health service (06) | DRG 853 ==
LOC: P.ED 20:25 → SUATTDRO 01-26 00:11 → 2N 01-26 00:11 → 4N 01-29 16:22
PROVIDERS: ATTEND Internal Medicine